=== PATIENT | female | born 1945 | race Caucasian/White ===

== ENCOUNTER 2023-03-11 05:39 | Inpatient (IN) | payer MEDICARE, OTHER ==
[2023-03-11] MEDS ORDERED: Calcium Carbonate 500 MG ChewTAB PO PRN (05:56)
[2023-03-11] MEDS ORDERED: Ondansetron ODT 4 MG TAB PO PRN (05:56)
[2023-03-11 06:10] VITALS: BMI 27.1
[2023-03-11] MEDS ORDERED: Aspirin Chewable 81 MG TAB PO SCH (06:15)
[2023-03-11 06:49] LABS: #Monocytes 0.6 thou/uL (0.11-0.59); #Neutrophils 6.9 thou/uL (1.40-6.50); %Basophils 0.2 % (0.0-1.0); %Eosinophils 0.1 % (0.0-10.0); %Lymphocytes 17.5 % (21.0-51.0); %Monocytes 6.5 % (0.0-10.0); %Neutrophils 75.5 % (42.0-75.0); Hematocrit 36.7 % (36.0-47.0); Hemoglobin 13.1 g/dL (12.0-16.0); Mean Corpuscular HGB CONC 35.7 g/dL (32.0-36.0); Mean Corpuscular Hemoglobin 32.8 pg (27.0-31.0); Mean Corpuscular Volume 91.8 fl (78.0-98.0); Mean Platelet Volume 9.8 fL (7.4-10.4); Platelet Count 187 10x3/uL (130-400); RBC Distribution Width 12.5 % (11.5-14.5); White Blood Cell (WBC) Count 9.1 10x3/uL (4.8-10.8)
[2023-03-11 07:12] LABS: Anion Gap 11 mmol/L (10-20); BUN (Urea Nitrogen) 12 mg/dL (9.8-20.1); Calc. Creatinine Clearance 74 mL/min (70-130); Calcium 8.9 mg/dL (7.8-10.44); Carbon Dioxide 26 mmol/L (23-31); Chloride 91 mmol/L (98-107); Estimated GFR 85; Glucose 116 mg/dL (83-110); Potassium 3.4 mmol/L (3.5-5.1); Sodium 125 mmol/L (136-145)
[2023-03-11 07:16] LABS: Troponin I 0.142 ng/mL (< 0.028)
[2023-03-11] MEDS ORDERED: Electrolyte Replacement Protocol 1 EACH FS SCH (07:45)
[2023-03-11] MEDS ORDERED: Magnesium 2 GM/50 ML(in water) 2 GM in Premix 1 BAG IVPB SCH (07:45)
[2023-03-11] MEDS ORDERED: Potassium Chloride 20 MEQ in Premix 1 BAG IVPB SCH (08:00)
[2023-03-11] MEDS ORDERED: Nitroglycerin 0.4 MG TAB (25 Tab Bottle) SL PRN (09:11)
[2023-03-11] MEDS ORDERED: Potassium Chloride 20 MEQ TAB PO SCH (09:15)
[2023-03-11 09:22] LABS: Troponin I 0.148 ng/mL (< 0.028)
[2023-03-11] MEDS: Aspirin Chewable 81 MG TAB PO SCH (09:45)
[2023-03-11] MEDS: Famotidine 20 MG TAB PO SCH ×2 (09:45→20:03)
[2023-03-11] MEDS ORDERED: Flecainide 50 MG TAB PO SCH ×2 (10:45→21:00)
[2023-03-11 11:58] LABS: Magnesium 1.7 mg/dL (1.6-2.6)
[2023-03-11 13:24] LABS: Anion Gap 13 mmol/L (10-20); BUN (Urea Nitrogen) 11 mg/dL (9.8-20.1); Calc. Creatinine Clearance 70 mL/min (70-130); Carbon Dioxide 26 mmol/L (23-31); Chloride 90 mmol/L (98-107); Potassium 3.8 mmol/L (3.5-5.1); Sodium 125 mmol/L (136-145)
[2023-03-11 13:25] LABS: Calcium 9.1 mg/dL (7.8-10.44); Estimated GFR 79; Glucose 112 mg/dL (83-110)
[2023-03-11 19:40] LABS: SARS-CoV-2 NAA Rapid Test Not Detected (NotDetected)
[2023-03-11] MEDS: Atorvastatin Calcium 40 MG TAB PO SCH (20:03)
[2023-03-12 04:53] LABS: #Eosinphils 0.1 thou/uL (0.0-0.7); #Monocytes 0.7 thou/uL (0.11-0.59); #Neutrophils 3.6 thou/uL (1.40-6.50); %Basophils 0.6 % (0.0-1.0); %Eosinophils 1.2 % (0.0-10.0); %Lymphocytes 31.5 % (21.0-51.0); %Monocytes 11.4 % (0.0-10.0); %Neutrophils 55.1 % (42.0-75.0); Hematocrit 37.8 % (36.0-47.0); Hemoglobin 13.4 g/dL (12.0-16.0); Mean Corpuscular HGB CONC 35.4 g/dL (32.0-36.0); Mean Corpuscular Hemoglobin 32.6 pg (27.0-31.0); Platelet Count 158 10x3/uL (130-400); RBC Distribution Width 12.9 % (11.5-14.5); Red Blood Cell (RBC) Count 4.11 mill/uL (4.20-5.40); White Blood Cell (WBC) Count 6.5 10x3/uL (4.8-10.8)
[2023-03-12 05:22] LABS: Anion Gap 10 mmol/L (10-20); BUN (Urea Nitrogen) 9 mg/dL (9.8-20.1); Calc. Creatinine Clearance 72 mL/min (70-130); Calcium 8.9 mg/dL (7.8-10.44); Carbon Dioxide 25 mmol/L (23-31); Chloride 97 mmol/L (98-107); Estimated GFR 82; Glucose 95 mg/dL (83-110); Magnesium 2.3 mg/dL (1.6-2.6); Potassium 3.9 mmol/L (3.5-5.1); Sodium 128 mmol/L (136-145)
[2023-03-12] MEDS: Famotidine 20 MG TAB PO SCH (09:21)
[2023-03-12] MEDS: Aspirin Chewable 81 MG TAB PO SCH (09:21)
[2023-03-12] MEDS ORDERED: Colchicine 0.6 MG TAB PO SCH (09:45)
[2023-03-12] MEDS ORDERED: predniSONE 50 MG TAB PO SCH (09:45)
[2023-03-12] MEDS ORDERED: CATH FS PRN (14:00)
[2023-03-12] MEDS ORDERED: Morphine 2 MG/ML VIAL SLOW IVP PRN (18:02)
[2023-03-12] MEDS ORDERED: Acetaminophen 325 MG TAB PO PRN (18:12)
[2023-03-12] MEDS: Atorvastatin Calcium 40 MG TAB PO SCH (23:44)
[2023-03-12] MEDS: predniSONE 50 MG TAB PO SCH (23:45)
[2023-03-12] MEDS: Colchicine 0.6 MG TAB PO SCH (23:45)
[2023-03-13 04:12] LABS: #Monocytes 0.2 thou/uL (0.11-0.59); #Neutrophils 9.5 thou/uL (1.40-6.50); %Basophils 0.1 % (0.0-1.0); %Lymphocytes 7.8 % (21.0-51.0); %Monocytes 1.4 % (0.0-10.0); %Neutrophils 90.3 % (42.0-75.0); Hematocrit 39.6 % (36.0-47.0); Mean Corpuscular HGB CONC 35.4 g/dL (32.0-36.0); Mean Corpuscular Hemoglobin 32.9 pg (27.0-31.0); Mean Platelet Volume 10.2 fL (7.4-10.4); Platelet Count 174 10x3/uL (130-400); RBC Distribution Width 12.8 % (11.5-14.5); Red Blood Cell (RBC) Count 4.26 mill/uL (4.20-5.40); White Blood Cell (WBC) Count 10.5 10x3/uL (4.8-10.8)
[2023-03-13 04:44] LABS: Anion Gap 10 mmol/L (10-20); BUN (Urea Nitrogen) 14 mg/dL (9.8-20.1); Calc. Creatinine Clearance 71 mL/min (70-130); Calcium 9.1 mg/dL (7.8-10.44); Carbon Dioxide 25 mmol/L (23-31); Chloride 101 mmol/L (98-107); Estimated GFR 81; Glucose 120 mg/dL (83-110); Magnesium 2.1 mg/dL (1.6-2.6); Potassium 3.7 mmol/L (3.5-5.1); Sodium 132 mmol/L (136-145)
[2023-03-13] MEDS ORDERED: Sodium Chloride 0.9% 1,000 ML IV SCH ×2 (06:00→11:30)
[2023-03-13] MEDS ORDERED: diphenhydrAMINE 25 MG CAP PO SCH (08:00)
[2023-03-13] MEDS ORDERED: Famotidine 20 MG TAB PO SCH (08:00)
[2023-03-13] MEDS ORDERED: Lidocaine 1% (PF) 30 ML VIAL ONE ×2 (08:03→09:35)
[2023-03-13] MEDS ORDERED: fentaNYL 50 mcg/mL 1 mL Vial ONE (08:03)
[2023-03-13] MEDS ORDERED: Heparin 10,000 UNITS/ 10 ML VIAL ONE ×2 (08:03→09:34)
[2023-03-13] MEDS ORDERED: Midazolam HCl 2 mg/2 ml Vial ONE (08:03)
[2023-03-13] MEDS ORDERED: Nitroglycerin 50 MG/250 ML BOT 0 ML ONE ×2 (08:04→09:35)
[2023-03-13] MEDS: Colchicine 0.6 MG TAB PO SCH (08:41)
[2023-03-13] MEDS: Aspirin Chewable 81 MG TAB PO SCH ×2 (08:41→08:44)
[2023-03-13] MEDS: predniSONE 50 MG TAB PO SCH (08:41)
[2023-03-13] MEDS ORDERED: TICAGRELOR 90 MG TABLET ONE (11:03)
[2023-03-13] MEDS ORDERED: Iopamidol 370 76% 100 ML VIAL ONE (11:28)
[2023-03-13] MEDS ORDERED: Sucralfate 1 GM/10 ML UDCUP PO SCH (13:15)
[2023-03-13] MEDS: Atorvastatin Calcium 40 MG TAB PO SCH (22:16)
[2023-03-13] MEDS: TICAGRELOR 90 MG TABLET PO SCH (22:17)
[2023-03-14] MEDS: Loperamide HCl 2 MG CAP PO PRN ×2 (03:33→08:49)
[2023-03-14 04:43] LABS: #Monocytes 1.4 thou/uL (0.11-0.59); #Neutrophils 14.8 thou/uL (1.40-6.50); %Basophils 0.1 % (0.0-1.0); %Eosinophils 0.2 % (0.0-10.0); %Lymphocytes 12.6 % (21.0-51.0); %Monocytes 7.3 % (0.0-10.0); %Neutrophils 79.3 % (42.0-75.0); Hematocrit 43.1 % (36.0-47.0); Hemoglobin 14.5 g/dL (12.0-16.0); Mean Corpuscular HGB CONC 33.6 g/dL (32.0-36.0); Mean Corpuscular Hemoglobin 32.4 pg (27.0-31.0); Mean Corpuscular Volume 96.2 fl (78.0-98.0); Mean Platelet Volume 10.3 fL (7.4-10.4); Platelet Count 193 10x3/uL (130-400); RBC Distribution Width 13.4 % (11.5-14.5); Red Blood Cell (RBC) Count 4.48 mill/uL (4.20-5.40); White Blood Cell (WBC) Count 18.7 10x3/uL (4.8-10.8)
[2023-03-14 05:12] LABS: ALT (SGPT) 36 U/L (8-55); AST (SGOT) 47 U/L (5-34); Albumin 4.4 g/dL (3.4-4.8); Alkaline Phosphatase 67 U/L (40-110); Anion Gap 13 mmol/L (10-20); BUN (Urea Nitrogen) 17 mg/dL (9.8-20.1); Bilirubin, Total 0.6 mg/dL (0.2-1.2); Calc. Creatinine Clearance 56 mL/min (70-130); Calcium 9.3 mg/dL (7.8-10.44); Carbon Dioxide 25 mmol/L (23-31); Chloride 101 mmol/L (98-107); Estimated GFR 61; Globulin 2.8 g/dL (2.4-3.5); Glucose 98 mg/dL (83-110); Magnesium 2.3 mg/dL (1.6-2.6); Potassium 3.7 mmol/L (3.5-5.1); Protein, Total 7.2 g/dL (5.8-8.1); Sodium 135 mmol/L (136-145)
[2023-03-14] MEDS: Aspirin Chewable 81 MG TAB PO SCH (08:49)
[2023-03-14] MEDS: TICAGRELOR 90 MG TABLET PO SCH (08:51)
[2023-03-14] MEDS ORDERED: Saccharomyces boulardii 250 MG CAP PO SCH (09:00)
[2023-03-14 15:00] VITALS: BP 125/58; TEMP 98.5
== END 2023-03-14 17:27 | disposition home or self-care (01) | DRG 321 ==
LOC: 2NO 05:40 → OBSVTOIN 03-13 14:44
PROVIDERS: ADMIT Student in an Organized Health Care Education/Training Program; ATTEND Internal Medicine
PROC: 4A023N7 Measurement of Cardiac Sampling and Pressure, Left Heart, Percutaneous Approach (ICD-10-PCS; principal; 2023-03-13)
PROC: 027034Z Dilation of Coronary Artery, One Artery with Drug-eluting Intraluminal Device, Percutaneous Approach (ICD-10-PCS; 2023-03-13)
PROC: B2151ZZ Fluoroscopy of Left Heart using Low Osmolar Contrast (ICD-10-PCS; 2023-03-13)
PROC: B2111ZZ Fluoroscopy of Multiple Coronary Arteries using Low Osmolar Contrast (ICD-10-PCS; 2023-03-13)
DX: I31.9 Disease of pericardium, unspecified (principal); I21.4 Non-ST elevation (NSTEMI) myocardial infarction; E87.1 Hypo-osmolality and hyponatremia; I16.1 Hypertensive emergency; I10 Essential (primary) hypertension; E78.5 Hyperlipidemia, unspecified; Z95.5 Presence of coronary angioplasty implant and graft; Z79.82 Long term (current) use of aspirin; Z79.01 Long term (current) use of anticoagulants; Z79.899 Other long term (current) drug therapy; Z90.49 Acquired absence of other specified parts of digestive tract; Z90.710 Acquired absence of both cervix and uterus; Z98.890 Other specified postprocedural states; I44.0 Atrioventricular block, first degree; I25.10 Atherosclerotic heart disease of native coronary artery without angina pectoris; Z91.041 Radiographic dye allergy status; I48.0 Paroxysmal atrial fibrillation; R19.7 Diarrhea, unspecified; Z20.822 Contact with and (suspected) exposure to COVID-19
CPT/HCPCS: 36415; 71045; 71250; 80048; 80053; 82533; 83735; 83880; 83930; 83935; 84300; 84443; 85025; 85347; 86140; 87633; 92928; 93005; 93010; 93306; 93458; 93798; 94760; 96372; 96374; 97139; 99152; 99153; C1725; C1760; C1769; C1874; C1887; C9600; G0378; J1644; J1650; J2001; J2250; J3010; J3475; J7050; J7512

== ENCOUNTER 2023-03-18 17:22 | Inpatient (IN) | payer MEDICARE, OTHER ==
[2023-03-18 18:29] LABS: #Eosinphils 0.1 thou/uL (0.0-0.7); #Monocytes 0.7 thou/uL (0.11-0.59); #Neutrophils 5.4 thou/uL (1.40-6.50); %Basophils 0.4 % (0.0-1.0); %Eosinophils 1.1 % (0.0-10.0); %Lymphocytes 23.2 % (21.0-51.0); %Monocytes 8.9 % (0.0-10.0); %Neutrophils 65.9 % (42.0-75.0); Hematocrit 39.1 % (36.0-47.0); Hemoglobin 13.9 g/dL (12.0-16.0); Mean Corpuscular HGB CONC 35.5 g/dL (32.0-36.0); Mean Corpuscular Hemoglobin 33.1 pg (27.0-31.0); Mean Corpuscular Volume 93.1 fl (78.0-98.0); Mean Platelet Volume 9.6 fL (7.4-10.4); Platelet Count 228 10x3/uL (130-400); RBC Distribution Width 12.6 % (11.5-14.5); White Blood Cell (WBC) Count 8.2 10x3/uL (4.8-10.8)
[2023-03-18 18:53] LABS: ALT (SGPT) 38 U/L (8-55); AST (SGOT) 27 U/L (5-34); Albumin 4.7 g/dL (3.4-4.8); Alkaline Phosphatase 58 U/L (40-110); Anion Gap 13 mmol/L (10-20); BUN (Urea Nitrogen) 14 mg/dL (9.8-20.1); Bilirubin, Total 1.1 mg/dL (0.2-1.2); Calc. Creatinine Clearance 0 mL/min (70-130); Calcium 9.7 mg/dL (7.8-10.44); Carbon Dioxide 28 mmol/L (23-31); Chloride 95 mmol/L (98-107); Estimated GFR 65; Globulin 2.5 g/dL (2.4-3.5); Glucose 129 mg/dL (83-110); Lipase 31 U/L (8-78); Potassium 3.6 mmol/L (3.5-5.1); Protein, Total 7.2 g/dL (5.8-8.1); Sodium 132 mmol/L (136-145)
[2023-03-18 18:56] LABS: Troponin I 0.099 ng/mL (< 0.028)
[2023-03-18] MEDS ORDERED: Nitroglycerin 0.4 MG TAB 1 EACH ONE (20:28)
[2023-03-18] MEDS ORDERED: Ondansetron ODT 4 MG TAB PO PRN (21:55)
[2023-03-18] MEDS ORDERED: Acetaminophen 650 MG Suppository PR PRN (21:55)
[2023-03-18] MEDS ORDERED: Ondansetron PF 4 MG/2 ML Vial IVP PRN (21:55)
[2023-03-18] MEDS ORDERED: Acetaminophen 325 MG TAB PO PRN (21:55)
[2023-03-18] MEDS ORDERED: Apixaban 5 MG TAB PO SCH ×2 (21:58→22:15)
[2023-03-18] MEDS ORDERED: hydrALAZINE 20 MG/ML VIAL SLOW IVP PRN (22:01)
[2023-03-18 22:37] LABS: Troponin I 0.066 ng/mL (< 0.028)
[2023-03-19 01:09] LABS: Troponin I 0.049 ng/mL (< 0.028)
[2023-03-19 05:43] LABS: #Basophils 0.1 thou/uL (0.0-0.2); #Eosinphils 0.1 thou/uL (0.0-0.7); #Monocytes 0.7 thou/uL (0.11-0.59); #Neutrophils 3.8 thou/uL (1.40-6.50); %Basophils 0.8 % (0.0-1.0); %Eosinophils 1.7 % (0.0-10.0); %Lymphocytes 27.5 % (21.0-51.0); %Monocytes 11.2 % (0.0-10.0); %Neutrophils 58.3 % (42.0-75.0); Hematocrit 38.2 % (36.0-47.0); Hemoglobin 13.2 g/dL (12.0-16.0); Mean Corpuscular HGB CONC 34.6 g/dL (32.0-36.0); Mean Corpuscular Hemoglobin 32.4 pg (27.0-31.0); Mean Corpuscular Volume 93.6 fl (78.0-98.0); Mean Platelet Volume 9.9 fL (7.4-10.4); Platelet Count 177 10x3/uL (130-400); RBC Distribution Width 12.6 % (11.5-14.5); Red Blood Cell (RBC) Count 4.08 mill/uL (4.20-5.40); White Blood Cell (WBC) Count 6.6 10x3/uL (4.8-10.8)
[2023-03-19 06:12] LABS: Anion Gap 12 mmol/L (10-20); BUN (Urea Nitrogen) 13 mg/dL (9.8-20.1); Calc. Creatinine Clearance 71 mL/min (70-130); Calcium 9.2 mg/dL (7.8-10.44); Carbon Dioxide 25 mmol/L (23-31); Chloride 99 mmol/L (98-107); Estimated GFR 84; Glucose 94 mg/dL (83-110); Potassium 3.6 mmol/L (3.5-5.1); Sodium 132 mmol/L (136-145)
[2023-03-19] MEDS ORDERED: Aspirin Chewable 81 MG TAB ONE (08:42)
[2023-03-19] MEDS ORDERED: Clopidogrel Bisulfate 75 MG TAB ONE (08:42)
[2023-03-19] MEDS ORDERED: Metoprolol Tartrate 25 MG TAB ONE (08:42)
[2023-03-19] MEDS: Clopidogrel Bisulfate 75 MG TAB PO SCH (09:11)
[2023-03-19] MEDS: Aspirin Chewable 81 MG TAB PO SCH (09:11)
[2023-03-19] MEDS: Apixaban 5 MG TAB PO SCH ×2 (09:41→22:19)
[2023-03-19] MEDS: Ezetimibe 10 MG TAB PO SCH (09:41)
[2023-03-19] MEDS: Flecainide 50 MG TAB PO SCH ×2 (09:41→22:19)
[2023-03-19] MEDS: Valsartan 80 MG TAB PO SCH (09:42)
[2023-03-19] MEDS: Hydrochlorothiazide 25 MG TAB PO SCH (09:42)
[2023-03-19] MEDS: Atorvastatin Calcium 40 MG TAB PO SCH (22:19)
[2023-03-19] MEDS: NIFEdipine XL 30 MG ER.TAB PO SCH (22:22)
[2023-03-20 05:15] VITALS: BMI 26.4
[2023-03-20] MEDS: Clopidogrel Bisulfate 75 MG TAB PO SCH (09:35)
[2023-03-20] MEDS: Apixaban 5 MG TAB PO SCH ×2 (09:35→20:35)
[2023-03-20] MEDS: Aspirin Chewable 81 MG TAB PO SCH (09:35)
[2023-03-20] MEDS: Flecainide 50 MG TAB PO SCH (09:36)
[2023-03-20] MEDS: Ezetimibe 10 MG TAB PO SCH (09:36)
[2023-03-20] MEDS: Hydrochlorothiazide 25 MG TAB PO SCH (09:36)
[2023-03-20] MEDS: Valsartan 80 MG TAB PO SCH (09:37)
[2023-03-20] MEDS: NIFEdipine XL 30 MG ER.TAB PO SCH (11:44)
[2023-03-20] MEDS ORDERED: predniSONE 50 MG TAB PO SCH ×3 (12:15→21:00)
[2023-03-20] MEDS: Atorvastatin Calcium 40 MG TAB PO SCH (20:35)
[2023-03-21] MEDS ORDERED: predniSONE 50 MG TAB PO SCH ×2 (02:00→08:00)
[2023-03-21 06:40] LABS: Anion Gap 16 mmol/L (10-20); BUN (Urea Nitrogen) 17 mg/dL (9.8-20.1); Calc. Creatinine Clearance 61 mL/min (70-130); Calcium 9.3 mg/dL (7.8-10.44); Carbon Dioxide 21 mmol/L (23-31); Chloride 95 mmol/L (98-107); Estimated GFR 69; Glucose 164 mg/dL (83-110); Potassium 3.8 mmol/L (3.5-5.1); Sodium 128 mmol/L (136-145)
[2023-03-21] MEDS ORDERED: diphenhydrAMINE 25 MG CAP PO SCH (08:00)
[2023-03-21] MEDS: Valsartan 80 MG TAB PO SCH (08:03)
[2023-03-21] MEDS: Aspirin Chewable 81 MG TAB PO SCH (08:03)
[2023-03-21] MEDS: Clopidogrel Bisulfate 75 MG TAB PO SCH (08:03)
[2023-03-21] MEDS: Ezetimibe 10 MG TAB PO SCH (08:04)
[2023-03-21] MEDS: Hydrochlorothiazide 25 MG TAB PO SCH (08:04)
[2023-03-21] MEDS: Apixaban 5 MG TAB PO SCH (08:04)
[2023-03-21] MEDS ORDERED: Iopamidol 370 76% 100 ML VIAL ONE (09:29)
[2023-03-21 15:43] VITALS: BP 130/67; TEMP 97.6
== END 2023-03-21 17:14 | disposition home or self-care (01) | DRG 315 ==
LOC: ERS 17:22 → ERHOLD 20:44 → 2NO 03-19 20:07 → OBSVTOIN 03-20 10:40
PROVIDERS: ADMIT Student in an Organized Health Care Education/Training Program; ATTEND Family Medicine
DX: I31.9 Disease of pericardium, unspecified (principal); E87.1 Hypo-osmolality and hyponatremia; I48.20 Chronic atrial fibrillation, unspecified; R00.1 Bradycardia, unspecified; I25.10 Atherosclerotic heart disease of native coronary artery without angina pectoris; I16.0 Hypertensive urgency; I10 Essential (primary) hypertension; E78.5 Hyperlipidemia, unspecified; Z91.041 Radiographic dye allergy status; Z79.01 Long term (current) use of anticoagulants; Z79.82 Long term (current) use of aspirin; Z79.899 Other long term (current) drug therapy; Z90.710 Acquired absence of both cervix and uterus; Z95.5 Presence of coronary angioplasty implant and graft; Z90.49 Acquired absence of other specified parts of digestive tract; Z82.49 Family history of ischemic heart disease and other diseases of the circulatory system; T44.7X5A Adverse effect of beta-adrenoreceptor antagonists, initial encounter
CPT/HCPCS: 36415; 71045; 71275; 80048; 80053; 83690; 84484; 85025; 93005; 93306; G0378; J7512; Q9967

== ENCOUNTER 2023-03-23 11:12 | Inpatient (IN) | payer MEDICARE, OTHER ==
[2023-03-23 11:50] LABS: #Monocytes 0.8 thou/uL (0.11-0.59); #Neutrophils 10.5 thou/uL (1.40-6.50); %Basophils 0.3 % (0.0-1.0); %Eosinophils 0.3 % (0.0-10.0); %Lymphocytes 14.9 % (21.0-51.0); %Monocytes 6.1 % (0.0-10.0); Hematocrit 42.7 % (36.0-47.0); Hemoglobin 15.1 g/dL (12.0-16.0); Mean Corpuscular HGB CONC 35.4 g/dL (32.0-36.0); Mean Corpuscular Hemoglobin 32.6 pg (27.0-31.0); Mean Corpuscular Volume 92.2 fl (78.0-98.0); Mean Platelet Volume 9.4 fL (7.4-10.4); Platelet Count 284 10x3/uL (130-400); RBC Distribution Width 12.8 % (11.5-14.5); Red Blood Cell (RBC) Count 4.63 mill/uL (4.20-5.40); White Blood Cell (WBC) Count 13.5 10x3/uL (4.8-10.8)
[2023-03-23 12:16] LABS: Troponin I Less than 0.010 ng/mL (< 0.028)
[2023-03-23 12:20] LABS: ALT (SGPT) 38 U/L (8-55); AST (SGOT) 34 U/L (5-34); Albumin 4.6 g/dL (3.4-4.8); Alkaline Phosphatase 65 U/L (40-110); Anion Gap 18 mmol/L (10-20); BUN (Urea Nitrogen) 16 mg/dL (9.8-20.1); Bilirubin, Total 1.1 mg/dL (0.2-1.2); Calc. Creatinine Clearance 0 mL/min (70-130); Calcium 9.9 mg/dL (7.8-10.44); Carbon Dioxide 26 mmol/L (23-31); Chloride 92 mmol/L (98-107); Estimated GFR 69; Glucose 137 mg/dL (83-110); Lipase 53 U/L (8-78); Potassium 3.5 mmol/L (3.5-5.1); Protein, Total 7.6 g/dL (5.8-8.1); Sodium 132 mmol/L (136-145)
[2023-03-23] MEDS ORDERED: Acetaminophen 500 MG TAB ONE (13:01)
[2023-03-23] MEDS ORDERED: Nitroglycerin 2% Ointment 1 INCH/1 GM Packet ONE (13:02)
[2023-03-23 14:18] VITALS: BMI 25.7
[2023-03-23] MEDS ORDERED: Metoprolol Tartrate 5 MG/5 ML VIAL ONE (14:55)
[2023-03-23] MEDS ORDERED: hydrALAZINE 25 MG TAB PO PRN (17:17)
[2023-03-23 18:20] LABS: Troponin I 0.038 ng/mL (< 0.028)
[2023-03-23] MEDS ORDERED: Communication Order-Pharmacy FS SCH (18:30)
[2023-03-23] MEDS ORDERED: Atorvastatin Calcium 40 MG TAB PO SCH (21:00)
[2023-03-23] MEDS ORDERED: Apixaban 5 MG TAB PO SCH (21:00)
[2023-03-23] MEDS ORDERED: Aspirin 325 mg Enteric Coated Tablet PO SCH (21:00)
[2023-03-23] MEDS: Aspirin 325 mg Enteric Coated Tablet PO SCH (21:22)
[2023-03-23] MEDS: Colchicine 0.6 MG TAB PO SCH (21:22)
[2023-03-24 04:58] LABS: Free T4 (Free Thyroxine) 1.85 ng/dL (0.70-1.48)
[2023-03-24] MEDS: Sodium Chloride 0.9% 1,000 ML IV SCH ×3 (07:46→10:43)
[2023-03-24] MEDS: predniSONE 20 MG TAB PO SCH (07:49)
[2023-03-24] MEDS: Hydrochlorothiazide 25 MG TAB PO SCH (07:49)
[2023-03-24] MEDS: Valsartan 80 MG TAB PO SCH (07:49)
[2023-03-24] MEDS: Ezetimibe 10 MG TAB PO SCH (07:49)
[2023-03-24] MEDS: Aspirin 325 mg Enteric Coated Tablet PO SCH ×2 (07:49→20:04)
[2023-03-24] MEDS: Colchicine 0.6 MG TAB PO SCH ×2 (07:50→20:04)
[2023-03-24] MEDS: Clopidogrel Bisulfate 75 MG TAB PO SCH (07:50)
[2023-03-24] MEDS ORDERED: Non-Formulary Item 1 EACH (Valsartan/Hydrochlorothiazide [Valsartan-Hctz 320-25 Mg Tab] 1 PO SCH (09:00)
[2023-03-24] MEDS ORDERED: Aspirin Chewable 81 MG TAB PO SCH (09:00)
[2023-03-24] MEDS ORDERED: Docusate 100 MG CAP PO SCH (09:00)
[2023-03-24] MEDS ORDERED: Loperamide HCl 2 MG CAP PO PRN ×2 (16:55)
[2023-03-24] MEDS ORDERED: Docusate 100 MG CAP PO PRN (17:00)
[2023-03-24] MEDS: Melatonin 3 MG TAB PO PRN (22:09)
[2023-03-25] MEDS: Sodium Chloride 0.9% 1,000 ML IV SCH (02:56)
[2023-03-25 05:06] LABS: #Monocytes 0.8 thou/uL (0.11-0.59); #Neutrophils 9.6 thou/uL (1.40-6.50); %Basophils 0.1 % (0.0-1.0); %Eosinophils 0.3 % (0.0-10.0); %Lymphocytes 16.4 % (21.0-51.0); %Monocytes 6.5 % (0.0-10.0); %Neutrophils 76.4 % (42.0-75.0); Hematocrit 38.1 % (36.0-47.0); Hemoglobin 13.6 g/dL (12.0-16.0); Mean Corpuscular HGB CONC 35.7 g/dL (32.0-36.0); Mean Corpuscular Hemoglobin 32.5 pg (27.0-31.0); Mean Corpuscular Volume 90.9 fl (78.0-98.0); Mean Platelet Volume 9.7 fL (7.4-10.4); Platelet Count 210 10x3/uL (130-400); RBC Distribution Width 12.7 % (11.5-14.5); Red Blood Cell (RBC) Count 4.19 mill/uL (4.20-5.40); White Blood Cell (WBC) Count 12.5 10x3/uL (4.8-10.8)
[2023-03-25 05:11] LABS: Anion Gap 13 mmol/L (10-20); BUN (Urea Nitrogen) 13 mg/dL (9.8-20.1); Calc. Creatinine Clearance 66 mL/min (70-130); Calcium 8.9 mg/dL (7.8-10.44); Carbon Dioxide 26 mmol/L (23-31); Chloride 91 mmol/L (98-107); Estimated GFR 82; Glucose 118 mg/dL (83-110); Potassium 3.2 mmol/L (3.5-5.1); Sodium 127 mmol/L (136-145)
[2023-03-25] MEDS ORDERED: Potassium Chloride 20 MEQ TAB PO SCH (08:45)
[2023-03-25] MEDS: Valsartan 80 MG TAB PO SCH (09:33)
[2023-03-25] MEDS: predniSONE 20 MG TAB PO SCH (09:33)
[2023-03-25] MEDS: Aspirin 325 mg Enteric Coated Tablet PO SCH ×2 (09:34→20:36)
[2023-03-25] MEDS: Colchicine 0.6 MG TAB PO SCH ×2 (09:34→20:37)
[2023-03-25] MEDS: Ezetimibe 10 MG TAB PO SCH (09:34)
[2023-03-25] MEDS: Clopidogrel Bisulfate 75 MG TAB PO SCH (09:35)
[2023-03-25] MEDS: Hydrochlorothiazide 25 MG TAB PO SCH (09:35)
[2023-03-25] MEDS: Melatonin 3 MG TAB PO PRN (22:53)
[2023-03-26 07:03] LABS: #Eosinphils 0.1 thou/uL (0.0-0.7); #Monocytes 0.8 thou/uL (0.11-0.59); #Neutrophils 8.4 thou/uL (1.40-6.50); %Basophils 0.1 % (0.0-1.0); %Eosinophils 0.7 % (0.0-10.0); %Lymphocytes 18.4 % (21.0-51.0); %Monocytes 7.1 % (0.0-10.0); %Neutrophils 73.4 % (42.0-75.0); Hematocrit 37.1 % (36.0-47.0); Hemoglobin 13.1 g/dL (12.0-16.0); Mean Corpuscular HGB CONC 35.3 g/dL (32.0-36.0); Mean Corpuscular Hemoglobin 32.4 pg (27.0-31.0); Mean Corpuscular Volume 91.8 fl (78.0-98.0); Platelet Count 220 10x3/uL (130-400); RBC Distribution Width 12.8 % (11.5-14.5); Red Blood Cell (RBC) Count 4.04 mill/uL (4.20-5.40); White Blood Cell (WBC) Count 11.4 10x3/uL (4.8-10.8)
[2023-03-26 07:28] LABS: Anion Gap 12 mmol/L (10-20); BUN (Urea Nitrogen) 16 mg/dL (9.8-20.1); Calc. Creatinine Clearance 57 mL/min (70-130); Carbon Dioxide 31 mmol/L (23-31); Chloride 93 mmol/L (98-107); Estimated GFR 70; Glucose 91 mg/dL (83-110); Sodium 132 mmol/L (136-145)
[2023-03-26] MEDS: predniSONE 20 MG TAB PO SCH (09:51)
[2023-03-26] MEDS: Valsartan 80 MG TAB PO SCH (09:51)
[2023-03-26] MEDS: Aspirin 325 mg Enteric Coated Tablet PO SCH ×2 (09:52→20:25)
[2023-03-26] MEDS: Colchicine 0.6 MG TAB PO SCH ×2 (09:52→20:25)
[2023-03-26] MEDS: Hydrochlorothiazide 25 MG TAB PO SCH (09:53)
[2023-03-26] MEDS: Clopidogrel Bisulfate 75 MG TAB PO SCH (09:53)
[2023-03-26] MEDS: Ezetimibe 10 MG TAB PO SCH (09:53)
[2023-03-26] MEDS ORDERED: Electrolyte Replacement Protocol 1 EACH FS SCH (13:45)
[2023-03-26] MEDS ORDERED: Electrolyte Replacement Protocol FS PRN (13:45)
[2023-03-26] MEDS: Melatonin 3 MG TAB PO PRN (20:31)
[2023-03-27 05:44] LABS: #Monocytes 0.8 thou/uL (0.11-0.59); #Neutrophils 7.6 thou/uL (1.40-6.50); %Basophils 0.1 % (0.0-1.0); %Eosinophils 0.4 % (0.0-10.0); %Lymphocytes 16.4 % (21.0-51.0); %Monocytes 7.8 % (0.0-10.0); %Neutrophils 74.8 % (42.0-75.0); Hematocrit 38.4 % (36.0-47.0); Hemoglobin 13.6 g/dL (12.0-16.0); Mean Corpuscular HGB CONC 35.4 g/dL (32.0-36.0); Mean Corpuscular Hemoglobin 32.6 pg (27.0-31.0); Mean Corpuscular Volume 92.1 fl (78.0-98.0); Mean Platelet Volume 9.5 fL (7.4-10.4); Platelet Count 213 10x3/uL (130-400); RBC Distribution Width 12.8 % (11.5-14.5); Red Blood Cell (RBC) Count 4.17 mill/uL (4.20-5.40); White Blood Cell (WBC) Count 10.2 10x3/uL (4.8-10.8)
[2023-03-27] MEDS: Aspirin 325 mg Enteric Coated Tablet PO SCH ×2 (05:50→21:17)
[2023-03-27] MEDS: predniSONE 20 MG TAB PO SCH (05:51)
[2023-03-27] MEDS: Ezetimibe 10 MG TAB PO SCH (05:51)
[2023-03-27] MEDS: Colchicine 0.6 MG TAB PO SCH ×2 (05:51→21:17)
[2023-03-27] MEDS: Clopidogrel Bisulfate 75 MG TAB PO SCH (05:51)
[2023-03-27] MEDS ORDERED: Sodium Chloride 0.9% 1,000 ML IV SCH (06:00)
[2023-03-27] MEDS ORDERED: fentaNYL 50 mcg/mL 1 mL Vial ONE (06:17)
[2023-03-27] MEDS ORDERED: Midazolam HCl 2 mg/2 ml Vial ONE (06:17)
[2023-03-27] MEDS ORDERED: Lidocaine 1% (PF) 30 ML VIAL ONE (06:17)
[2023-03-27] MEDS ORDERED: Heparin 10,000 UNITS/ 10 ML VIAL ONE (06:17)
[2023-03-27] MEDS ORDERED: Nitroglycerin 50 MG/250 ML BOT 0 ML ONE (06:18)
[2023-03-27] MEDS ORDERED: diphenhydrAMINE 50 MG/ML VIAL ONE (06:27)
[2023-03-27 06:55] LABS: Anion Gap 14 mmol/L (10-20); BUN (Urea Nitrogen) 21 mg/dL (9.8-20.1); Calc. Creatinine Clearance 64 mL/min (70-130); Calcium 8.9 mg/dL (7.8-10.44); Carbon Dioxide 27 mmol/L (23-31); Chloride 93 mmol/L (98-107); Estimated GFR 80; Glucose 95 mg/dL (83-110); Magnesium 1.8 mg/dL (1.6-2.6); Potassium 3.4 mmol/L (3.5-5.1); Sodium 131 mmol/L (136-145)
[2023-03-27] MEDS ORDERED: Magnesium 2 GM/50 ML(in water) 2 GM in Premix 1 BAG IVPB SCH (08:00)
[2023-03-27] MEDS ORDERED: Potassium Chloride 20 MEQ TAB PO SCH (08:00)
[2023-03-27] MEDS ORDERED: Sodium Chloride 0.9% 200 ML IV PRN (08:21)
[2023-03-27] MEDS ORDERED: Acetaminophen/Codeine 30-300mg Tablet PO PRN (08:21)
[2023-03-27] MEDS ORDERED: Nitroglycerin 0.4 MG TAB (25 Tab Bottle) SL PRN (08:21)
[2023-03-27] MEDS ORDERED: Sodium Chloride 0.9% 500 ML IV SCH (08:30)
[2023-03-27] MEDS: Valsartan 80 MG TAB PO SCH (09:12)
[2023-03-27] MEDS: Hydrochlorothiazide 25 MG TAB PO SCH (09:12)
[2023-03-27 12:53] LABS: Potassium 3.9 mmol/L (3.5-5.1)
[2023-03-27] MEDS ORDERED: Iopamidol 370 76% 100 ML VIAL ONE (13:39)
[2023-03-28 05:14] LABS: Anion Gap 10 mmol/L (10-20); BUN (Urea Nitrogen) 17 mg/dL (9.8-20.1); Calc. Creatinine Clearance 63 mL/min (70-130); Calcium 8.7 mg/dL (7.8-10.44); Carbon Dioxide 30 mmol/L (23-31); Chloride 97 mmol/L (98-107); Estimated GFR 79; Glucose 90 mg/dL (83-110); Magnesium 2.1 mg/dL (1.6-2.6); Potassium 4.2 mmol/L (3.5-5.1); Sodium 133 mmol/L (136-145)
[2023-03-28] MEDS: Apixaban 5 MG TAB PO SCH ×2 (08:57→20:15)
[2023-03-28] MEDS: Aspirin 325 mg Enteric Coated Tablet PO SCH (08:57)
[2023-03-28] MEDS: Colchicine 0.6 MG TAB PO SCH (08:58)
[2023-03-28] MEDS: Clopidogrel Bisulfate 75 MG TAB PO SCH (08:58)
[2023-03-28] MEDS: Ezetimibe 10 MG TAB PO SCH (08:58)
[2023-03-28] MEDS: Valsartan 80 MG TAB PO SCH (08:59)
[2023-03-28] MEDS: Amiodarone 200 MG TAB PO SCH (20:15)
[2023-03-29] MEDS ORDERED: Aspirin 81 mg Enteric Coated Tablet PO SCH (09:00)
[2023-03-29] MEDS: Apixaban 5 MG TAB PO SCH (09:06)
[2023-03-29] MEDS: Amiodarone 200 MG TAB PO SCH (09:06)
[2023-03-29] MEDS: Clopidogrel Bisulfate 75 MG TAB PO SCH (09:07)
[2023-03-29] MEDS: Ezetimibe 10 MG TAB PO SCH (09:07)
[2023-03-29] MEDS: Valsartan 80 MG TAB PO SCH (09:07)
[2023-03-29 11:58] VITALS: BP 114/56; TEMP 98.3
[2023-04-08] MEDS ORDERED: Amiodarone 200 MG TAB PO SCH (09:00)
== END 2023-03-29 12:41 | disposition home or self-care (01) | DRG 281 ==
LOC: ERS 11:12 → ERHOLD 13:13 → 2SW 20:58 → OBSVTOIN 03-24 17:04
PROVIDERS: ADMIT Emergency Medicine; ATTEND Family Medicine
PROC: 4A023N7 Measurement of Cardiac Sampling and Pressure, Left Heart, Percutaneous Approach (ICD-10-PCS; principal; 2023-03-27)
PROC: B2111ZZ Fluoroscopy of Multiple Coronary Arteries using Low Osmolar Contrast (ICD-10-PCS; 2023-03-27)
PROC: B2151ZZ Fluoroscopy of Left Heart using Low Osmolar Contrast (ICD-10-PCS; 2023-03-27)
DX: I31.39 Other pericardial effusion (noninflammatory) (principal); I21.4 Non-ST elevation (NSTEMI) myocardial infarction; E87.1 Hypo-osmolality and hyponatremia; I10 Essential (primary) hypertension; I48.0 Paroxysmal atrial fibrillation; E07.89 Other specified disorders of thyroid; E87.6 Hypokalemia; E78.5 Hyperlipidemia, unspecified; I25.10 Atherosclerotic heart disease of native coronary artery without angina pectoris; Z90.710 Acquired absence of both cervix and uterus; Z90.49 Acquired absence of other specified parts of digestive tract; Z79.899 Other long term (current) drug therapy; Z95.5 Presence of coronary angioplasty implant and graft; Z91.041 Radiographic dye allergy status; Z79.82 Long term (current) use of aspirin; Z98.890 Other specified postprocedural states
CPT/HCPCS: 36415; 71045; 76536; 80048; 80053; 83690; 83735; 83880; 84439; 84443; 84481; 84484; 85025; 93005; 93306; 93458; 94760; 96372; 99152; 99153; C1769; G0378; J1200; J1644; J1650; J2001; J2250; J3010; J3475; J7030; J7050; J7512; Q9967

== ENCOUNTER 2023-04-06 07:05 | Inpatient (IN) | payer MEDICARE, OTHER ==
[2023-04-06] MEDS ORDERED: Ondansetron PF 4 MG/2 ML Vial ONE (07:20)
[2023-04-06 08:04] LABS: #Eosinphils 0.1 thou/uL (0.0-0.7); #Monocytes 0.6 thou/uL (0.11-0.59); #Neutrophils 5.4 thou/uL (1.40-6.50); %Basophils 0.3 % (0.0-1.0); %Lymphocytes 13.2 % (21.0-51.0); %Monocytes 8.3 % (0.0-10.0); %Neutrophils 76.9 % (42.0-75.0); Hematocrit 37.1 % (36.0-47.0); Hemoglobin 13.8 g/dL (12.0-16.0); Mean Corpuscular HGB CONC 37.2 g/dL (32.0-36.0); Mean Corpuscular Hemoglobin 32.8 pg (27.0-31.0); Mean Corpuscular Volume 88.1 fl (78.0-98.0); Mean Platelet Volume 9.1 fL (7.4-10.4); Platelet Count 228 10x3/uL (130-400); RBC Distribution Width 12.2 % (11.5-14.5); Red Blood Cell (RBC) Count 4.21 mill/uL (4.20-5.40)
[2023-04-06 08:25] LABS: Bacteria/HPF None Seen HPF (None Seen); Bilirubin Negative (Negative); Blood, Urine Trace (Negative); CAUTI Indications for Culture Dysuria,urgency,freq; Clarity Clear (Clear); Glucose, Urine (Dipstick) Normal (Negative); Ketone, Urine 40 mg/dL (Negative); Leukocyte Negative Leu/uL (Negative); Nitrite Negative (Negative); Protein, Urine (Dipstick) 10 mg/dL (Neg-Trace); Specific Gravity, Urine 1.014 (1.002-1.036); Squamous Epithelial 0-3 HPF (0-3); Urobilinogen Normal mg/dL (Less than 2); WBC/HPF 0-3 HPF (0-3)
[2023-04-06 08:26] LABS: Urine Culture Reflex No No
[2023-04-06 08:38] LABS: ALT (SGPT) 83 U/L (8-55); AST (SGOT) 57 U/L (5-34); Albumin 4.2 g/dL (3.4-4.8); Alkaline Phosphatase 58 U/L (40-110); Anion Gap 17 mmol/L (10-20); BUN (Urea Nitrogen) 10 mg/dL (9.8-20.1); Bilirubin, Total 1.4 mg/dL (0.2-1.2); Calc. Creatinine Clearance 0 mL/min (70-130); Calcium 9.1 mg/dL (7.8-10.44); Carbon Dioxide 22 mmol/L (23-31); Chloride 83 mmol/L (98-107); Estimated GFR 69; Globulin 3.3 g/dL (2.4-3.5); Glucose 136 mg/dL (83-110); Potassium 3.7 mmol/L (3.5-5.1); Protein, Total 7.5 g/dL (5.8-8.1); Sodium 118 mmol/L (136-145)
[2023-04-06] MEDS ORDERED: Ondansetron PF 4 MG/2 ML Vial IVP PRN (11:02)
[2023-04-06] MEDS ORDERED: Metoprolol Tartrate 5 MG/5 ML VIAL IVP PRN (11:08)
[2023-04-06] MEDS ORDERED: Sodium Chloride 0.9% 1,000 ML IV SCH (11:15)
[2023-04-06] MEDS: Pantoprazole 40 MG VIAL IVP SCH ×2 (13:48→20:53)
[2023-04-06] MEDS ORDERED: hydrALAZINE 25 MG TAB PO PRN (14:07)
[2023-04-06 14:23] LABS: Anion Gap 11 mmol/L (10-20); BUN (Urea Nitrogen) 7 mg/dL (9.8-20.1); Calc. Creatinine Clearance 0 mL/min (70-130); Calcium 8.8 mg/dL (7.8-10.44); Carbon Dioxide 29 mmol/L (23-31); Chloride 91 mmol/L (98-107); Estimated GFR 79; Glucose 108 mg/dL (83-110); Potassium 3.5 mmol/L (3.5-5.1); Sodium 127 mmol/L (136-145)
[2023-04-06 14:54] LABS: Troponin I 0.029 ng/mL (< 0.028)
[2023-04-06 16:44] VITALS: BMI 25.4
[2023-04-06] MEDS: Apixaban 5 MG TAB PO SCH (20:52)
[2023-04-06] MEDS: Atorvastatin Calcium 40 MG TAB PO SCH (20:52)
[2023-04-06] MEDS ORDERED: Methyl Salicylate/Menthol 85 GM TUBE TOP PRN (23:50)
[2023-04-07 04:41] LABS: #Eosinphils 0.1 thou/uL (0.0-0.7); #Monocytes 0.7 thou/uL (0.11-0.59); #Neutrophils 3.9 thou/uL (1.40-6.50); %Basophils 0.6 % (0.0-1.0); %Eosinophils 1.9 % (0.0-10.0); %Lymphocytes 23.7 % (21.0-51.0); %Neutrophils 62.6 % (42.0-75.0); Hematocrit 35.6 % (36.0-47.0); Hemoglobin 12.5 g/dL (12.0-16.0); Mean Corpuscular HGB CONC 35.1 g/dL (32.0-36.0); Mean Corpuscular Hemoglobin 32.4 pg (27.0-31.0); Mean Platelet Volume 9.2 fL (7.4-10.4); Platelet Count 204 10x3/uL (130-400); RBC Distribution Width 13.1 % (11.5-14.5); Red Blood Cell (RBC) Count 3.86 mill/uL (4.20-5.40); White Blood Cell (WBC) Count 6.3 10x3/uL (4.8-10.8)
[2023-04-07 04:58] LABS: Mean Corpuscular Volume 92.2 fl (78.0-98.0)
[2023-04-07 05:05] LABS: Anion Gap 9 mmol/L (10-20); BUN (Urea Nitrogen) 5 mg/dL (9.8-20.1); Calc. Creatinine Clearance 65 mL/min (70-130); Calcium 8.4 mg/dL (7.8-10.44); Carbon Dioxide 27 mmol/L (23-31); Chloride 99 mmol/L (98-107); Estimated GFR 79; Glucose 84 mg/dL (83-110); Potassium 3.4 mmol/L (3.5-5.1); Sodium 132 mmol/L (136-145)
[2023-04-07] MEDS: Pantoprazole 40 MG VIAL IVP SCH ×2 (08:56→20:32)
[2023-04-07] MEDS: Aspirin Chewable 81 MG TAB PO SCH (09:01)
[2023-04-07] MEDS: Apixaban 5 MG TAB PO SCH ×2 (09:01→20:32)
[2023-04-07] MEDS: Ezetimibe 10 MG TAB PO SCH (09:01)
[2023-04-07] MEDS: Clopidogrel Bisulfate 75 MG TAB PO SCH (09:01)
[2023-04-07] MEDS ORDERED: Valsartan 80 MG TAB PO SCH (16:00)
[2023-04-07] MEDS ORDERED: Potassium Chloride 20 MEQ TAB PO SCH (18:00)
[2023-04-07] MEDS: Atorvastatin Calcium 40 MG TAB PO SCH (20:32)
[2023-04-08 04:17] LABS: #Eosinphils 0.1 thou/uL (0.0-0.7); #Monocytes 0.6 thou/uL (0.11-0.59); #Neutrophils 3.9 thou/uL (1.40-6.50); %Basophils 0.5 % (0.0-1.0); %Eosinophils 2.4 % (0.0-10.0); %Lymphocytes 21.3 % (21.0-51.0); %Monocytes 10.6 % (0.0-10.0); Hematocrit 33.4 % (36.0-47.0); Hemoglobin 11.7 g/dL (12.0-16.0); Mean Corpuscular Hemoglobin 33.6 pg (27.0-31.0); Mean Platelet Volume 9.1 fL (7.4-10.4); Platelet Count 186 10x3/uL (130-400); RBC Distribution Width 13.1 % (11.5-14.5); Red Blood Cell (RBC) Count 3.48 mill/uL (4.20-5.40)
[2023-04-08 04:59] LABS: Anion Gap 11 mmol/L (10-20); BUN (Urea Nitrogen) 10 mg/dL (9.8-20.1); Calc. Creatinine Clearance 60 mL/min (70-130); Calcium 8.4 mg/dL (7.8-10.44); Carbon Dioxide 25 mmol/L (23-31); Chloride 100 mmol/L (98-107); Estimated GFR 73; Glucose 92 mg/dL (83-110); Magnesium 2.1 mg/dL (1.6-2.6); Potassium 4.1 mmol/L (3.5-5.1); Sodium 132 mmol/L (136-145)
[2023-04-08] MEDS: Pantoprazole 40 MG VIAL IVP SCH (08:14)
[2023-04-08] MEDS: Aspirin Chewable 81 MG TAB PO SCH (08:18)
[2023-04-08] MEDS: Ezetimibe 10 MG TAB PO SCH (08:18)
[2023-04-08] MEDS: Clopidogrel Bisulfate 75 MG TAB PO SCH (08:18)
[2023-04-08] MEDS: Apixaban 5 MG TAB PO SCH (08:18)
[2023-04-08] MEDS ORDERED: Valsartan 80 MG TAB PO SCH ×2 (09:00)
[2023-04-08] MEDS ORDERED: Senokot S 8.6-50 MG TAB PO SCH ×2 (09:30→21:00)
[2023-04-08] MEDS ORDERED: Polyethylene Glycol 3350 17 GM Packet PO SCH (09:30)
[2023-04-08 11:27] VITALS: BP 165/75; TEMP 97.8
[2023-04-09] MEDS ORDERED: Polyethylene Glycol 3350 17 GM Packet PO SCH (09:00)
[2023-04-09] MEDS ORDERED: Valsartan 80 MG TAB PO SCH (09:00)
== END 2023-04-08 14:02 | disposition home or self-care (01) | DRG 641 ==
LOC: ERS 07:05 → 2SW 10:27 → OBSVTOIN 04-08 12:06
PROVIDERS: ADMIT Internal Medicine; ATTEND Family Medicine
DX: E87.1 Hypo-osmolality and hyponatremia (principal); I48.0 Paroxysmal atrial fibrillation; R79.89 Other specified abnormal findings of blood chemistry; E86.0 Dehydration; I25.10 Atherosclerotic heart disease of native coronary artery without angina pectoris; I10 Essential (primary) hypertension; E78.5 Hyperlipidemia, unspecified; Z88.8 Allergy status to other drugs, medicaments and biological substances; Z79.82 Long term (current) use of aspirin; Z79.899 Other long term (current) drug therapy; Z90.710 Acquired absence of both cervix and uterus; Z90.49 Acquired absence of other specified parts of digestive tract; Z98.890 Other specified postprocedural states; Z95.828 Presence of other vascular implants and grafts
CPT/HCPCS: 36415; 36416; 71045; 80048; 80053; 81001; 83735; 84484; 85025; 93005; 96361; 96374; 96375; 96376; C9113; G0378; J2405; J7050

== ENCOUNTER 2024-02-14 15:59 | Inpatient (IN) | payer MEDICARE, OTHER ==
[2024-02-14] MEDS ORDERED: Acetaminophen 325 MG TAB PO PRN (18:47)
[2024-02-14] MEDS ORDERED: Nitroglycerin 0.4 MG TAB (25 Tab Bottle) SL PRN (18:47)
[2024-02-14] MEDS ORDERED: Ondansetron ODT 4 MG TAB PO PRN (18:47)
[2024-02-14] MEDS ORDERED: Ondansetron PF 4 MG/2 ML Vial IVP PRN (18:47)
[2024-02-14] MEDS ORDERED: Morphine 4 MG/ML VIAL SLOW IVP PRN (18:53)
[2024-02-14 21:09] LABS: Troponin I Less than 0.010 ng/mL (< 0.028)
[2024-02-14] MEDS: Apixaban 5 MG TAB PO SCH (21:33)
[2024-02-14 22:14] VITALS: BMI 25.9
[2024-02-15 04:47] LABS: #Basophils 0.03 10x3/uL (0.0-0.2); %Basophils 0.4 % (0.0-1.0); %Eosinophils 1.2 % (0.0-10.0); %Lymphocytes 25.5 % (21.0-51.0); %Monocytes 8.4 % (0.0-10.0); %Neutrophils 64.3 % (42.0-75.0); Hematocrit 36.3 % (36.0-47.0); Hemoglobin 12.2 g/dL (12.0-16.0); Mean Corpuscular HGB CONC 33.6 g/dL (32.0-36.0); Mean Corpuscular Volume 95.3 fL (78.0-98.0); Mean Platelet Volume 10.4 fL (7.4-10.4); Platelet Count 152 10x3/uL (130-400); RBC Distribution Width 12.9 % (11.5-14.5); Red Blood Cell (RBC) Count 3.81 mill/uL (4.20-5.40)
[2024-02-15 05:04] LABS: Anion Gap 12 mmol/L (10-20); BUN (Urea Nitrogen) 10 mg/dL (9.8-20.1); Calc. Creatinine Clearance 69 mL/min (70-130); Calcium 8.8 mg/dL (7.8-10.44); Carbon Dioxide 23 mmol/L (23-31); Chloride 104 mmol/L (98-107); Estimated GFR 83; Glucose 90 mg/dL (83-110); Potassium 3.5 mmol/L (3.5-5.1); Sodium 135 mmol/L (136-145)
[2024-02-15] MEDS: Apixaban 5 MG TAB PO SCH (08:56)
[2024-02-15] MEDS: Clopidogrel Bisulfate 75 MG TAB PO SCH (08:56)
[2024-02-15] MEDS ORDERED: hydrALAZINE 25 MG TAB PO PRN (17:13)
[2024-02-15] MEDS: Valsartan 80 MG TAB PO SCH (20:14)
[2024-02-15] MEDS: Atorvastatin Calcium 40 MG TAB PO SCH (20:14)
[2024-02-16] MEDS: Ezetimibe 10 MG TAB PO SCH (08:56)
[2024-02-16] MEDS: NIFEdipine XL 30 MG ER.TAB PO SCH (08:57)
[2024-02-16 11:34] VITALS: BP 138/79; TEMP 97.9
== END 2024-02-16 14:13 | disposition home or self-care (01) | DRG 309 ==
LOC: 2SW 17:45 → OBSVTOIN 02-15 09:16
PROVIDERS: ADMIT Internal Medicine; ATTEND Family Medicine
DX: I48.0 Paroxysmal atrial fibrillation (principal); E87.1 Hypo-osmolality and hyponatremia; R07.89 Other chest pain; I25.10 Atherosclerotic heart disease of native coronary artery without angina pectoris; E78.5 Hyperlipidemia, unspecified; I10 Essential (primary) hypertension; Z91.041 Radiographic dye allergy status; Z90.710 Acquired absence of both cervix and uterus; Z98.890 Other specified postprocedural states; Z90.49 Acquired absence of other specified parts of digestive tract; Z79.899 Other long term (current) drug therapy; Z79.01 Long term (current) use of anticoagulants
CPT/HCPCS: 36415; 36416; 80048; 85025; 93306; G0378